=== PATIENT | female | born 1960 | race Caucasian/White ===

== ENCOUNTER 2019-11-28 21:13 | Emergency (ER) | payer OTHER, SELFPAY ==
[~2019-11-28] VITALS: Ht 162.6 cm; Wt 112.6 kg
--- NOTE | 2019-11-28 21:40 | NUR ---
PT REPORTS RLQ, RIGHT FLANK AND RIGHT HIP PAIN STARTING THIS MORNING OCCASIONALLY RADIATING TO BACK. PT DENIES PAIN OR BURNING WITH URINATION. PT DENIES CHILLS, N/V/D. PT DENIES ANY OTHER C/O AT THIS TIME. PT CONNECTED TO MONITORING, CALL LIGHT WITHIN REACH. ERMD IN ROOM TO EVAL PT.
[2019-11-28] MEDS ORDERED: LISI-167 PO (21:48)
[2019-11-28] MEDS ORDERED: LIRA0.6P INJ (21:48)
[2019-11-28] MEDS ORDERED: MORPHINE SULFATE 4 MG/ML, 1ML IVPush PRN (22:00)
[2019-11-28] MEDS ORDERED: SODIUM CHLORIDE FLUSH 10ML SYR IVF ONE (22:00)
[2019-11-28] MEDS ORDERED: ONDANSETRON 2MG/ML, 2ML IVPush ONE (22:00)
[2019-11-28] MEDS ORDERED: ONDANSETRON 2MG/ML, 2ML ONE (22:16)
[2019-11-28] MEDS ORDERED: MORPHINE SULFATE 4 MG/ML, 1ML ONE (22:16)
[2019-11-28 22:19] LABS: BASOPHILS # (AUTO) 0.06 x10^3/uL (0-0.1); BASOPHILS % (AUTO) 0 % (0-1); EOSINOPHILS # (AUTO) 0.24 x10^3/uL (0-0.4); EOSINOPHILS % (AUTO) 2 % (1-7); LYMPHOCYTES # (AUTO) 2.12 x10^3/uL (1-3.4); LYMPHOCYTES % (AUTO) 14 % (22-44); MD NO; MEAN CORPUSCULAR HGB CONC 32.8 g/dL (32.4-35.8); MEAN CORPUSCULAR VOLUME 85.4 fL (80-100); MEAN PLATELET VOLUME 8.8 fL (7.4-10.4); MONOCYTES % (AUTO) 8 % (2-9); NEUTROPHILS # (AUTO) 11.88 x10^3/uL (1.8-6.8); NEUTROPHILS % (AUTO) 77 % (42-75); PLATELET COUNT 274 x10^3/uL (130-400); RED BLOOD COUNT 5.55 x10^6/uL (3.82-5.3); RED CELL DISTRIBUTION WIDTH 16.1 % (9.6-15.2)
--- NOTE | 2019-11-28 22:31 | NUR ---
PT MEDICATED PER MAR AND PROVIDED WARM BLANKETS. PT DENIES FURTHER NEEDS AT THIS TIME.
[2019-11-28 22:32] LABS: ALANINE AMINOTRANSFERASE 32 U/L (12-78); ALBUMIN 3.8 g/dL (3.4-5.0); ANION GAP 7 mmol/L (5-15); CALCIUM 9.4 mg/dL (8.5-10.1); CHLORIDE 107 mmol/L (98-107)
[2019-11-28 22:34] LABS: ALKALINE PHOSPHATASE 93 U/L (45-117); BILIRUBIN,TOTAL 0.7 mg/dL (0.2-1.0); TOTAL PROTEIN 8.1 g/dL (6.4-8.2)
[2019-11-28 22:41] LABS: CULTURE INDICATED? YES; MICROSCOPIC INDICATED
[2019-11-28] MEDS ORDERED: KETOROLAC 30 MG/1 ML ONE (23:17)
[2019-11-28 23:24] VITALS: BP 145/44
--- NOTE | 2019-11-28 23:26 | NUR ---
PT REPORTS DECREASED PAIN. PT UPDATED ON POC.
[2019-11-28] MEDS ORDERED: KETOROLAC 30 MG/1 ML IVPush ONE (23:30)
--- NOTE | 2019-11-28 23:53 | NUR ---
PT AMBULATED 50 FEET WITH STEADY GAIT, PT REPORTS NO INCREASE IN PAIN WITH MOVEMENT.
== END 2019-11-29 00:26 | disposition home or self-care (01) ==
LOC: ED 11-29 00:20
DX: K80.20 Calculus of gallbladder without cholecystitis without obstruction (principal); I10 Essential (primary) hypertension; E11.9 Type 2 diabetes mellitus without complications; Z90.710 Acquired absence of both cervix and uterus; Z86.39 Personal history of other endocrine, nutritional and metabolic disease
CPT/HCPCS: 36415; 76700; 80053; 81001; 83690; 85025; 87086; 96374; 96375; 99284; J1885; J2270; J2405